=== PATIENT | female | born 1930 | race Caucasian/White ===

== ENCOUNTER 2017-11-17 14:09 | Emergency (ER) | payer MEDICARE ==
[2017-11-17 16:14] LABS: ABS Basophils 0 10^3/ul (0-0.2); ABS Eosinophils 0 10^3/ul (0-0.6); ABS Lymphocytes 0.7 10^3/ul (1.0-4.8); ABS Monocytes 0.6 10^3/ul (0-0.8); ABS Neutrophils 6.7 10^3/ul (1.5-7.7); ABS Nucleated RBC 0 10^3/ul; Eosinophil % 0.4 % (0-6); Hematocrit 28 % (35-47); Hemoglobin 9.3 g/dl (12.0-16.0); Lymphocyte % 8.6 % (25-47); Mean Corpuscular HGB Conc 33 g/dl (31-36); Mean Corpuscular Hemoglobin 31 pg (27-31); Mean Corpuscular Volume 94 fL (80-97); Mean Platelet Volume 8.5 um3 (7.4-10.4); Nucleated Red Blood Cells % 0; Platelet Count 200 10^3/ul (150-450); Red Cell Distribution Width 14 % (10.5-15); White Blood Count 8.1 10^3/ul (3.5-10.8)
--- NOTE | 2017-11-17 16:18 | ED ---
Lower Extremity - HPI Summary HPI Summary: Patient is an 86-year-old female who presents emergency department for a leg pain and swelling. Patient states she was in [place] and fell 2-3 weeks ago. Pt. states she had xrays of hip, femur and knee which were negative according to pt. She then had a venous doppler which was also negative. Pt. just got back to [place] this week and developed increase pain and swelling to right thigh. She denies numbness or tingling in leg. She is on xarelto for afib. She denies fever, chills, CP, SOB. Symptoms are moderate in severity. Is able to ambulate with pain. - History of Current Complaint Chief Complaint: EDExtremityLower Stated Complaint: RT Thigh Pain Time Seen by Provider: 11/17/17 15:17 Hx Obtained From: Patient Pain Intensity: 4 - Allergies/Home Medications Allergies/Adverse Reactions: Allergies Allergy/AdvReac Type Severity Reaction Status Date / Time No Known Allergies Allergy Verified 10/11/13 08:52 PMH/Surg Hx/FS Hx/Imm Hx Previously Healthy: Yes Endocrine/Hematology History: Denies: Hx Diabetes Cardiovascular History: Reports: Hx Pacemaker/ICD, Other Cardiovascular Problems /Disorders - Bradycardia Respiratory History: Denies: Hx Asthma, Hx Chronic Obstructive Pulmonary Disease (COPD) GI History: Reports: Hx Irritable Bowel Musculoskeletal History: Reports: Hx Arthritis, Hx Osteoporosis Sensory History: Reports: Hx Cataracts, Hx Contacts or Glasses, Hx Glaucoma, Hx Hearing Aid, Hx Hearing Problem Opthamlomology History: Reports: Hx Cataracts, Hx Contacts or Glasses, Hx Glaucoma - Cancer History Cancer Type, Location and Year: Colon Cancer in 1979. Skin Melanoma on chest in 2003 Hx Chemotherapy: No Hx Radiation Therapy: No Hx Palliative Cancer Treatment: No - Surgical History Surgery Procedure, Year, and Place: 1979 Colon Cancer surgical resection. 1981 Hysterectomy. March 2011 Pacemaker Hx Anesthesia Reactions: No - Immunization History Immunizations Up to Date: Yes Infectious Disease History: No Infectious Disease History: Denies: Traveled Outside the [place] in Last 30 Days - Social History Occupation: Retired Lives: Alone Alcohol Use: None Substance Use Type: Reports: None Smoking Status (MU): Never Smoked Tobacco Type: Cigarettes Have You Smoked in the Last Year: No Review of Systems Constitutional: Negative Negative: Fever, Chills Cardiovascular: Negative Respiratory: Negative Positive: Other - Pain and swelling to right upper LE Neurological: Negative Negative: Weakness, Paresthesia, Numbness All Other Systems Reviewed And Are Negative: Yes Physical Exam Triage Information Reviewed: Yes Vital Signs On Initial Exam: Initial Vitals Temp Pulse Resp BP Pulse Ox 98.4 F 65 18 139/68 100 11/17/17 14:35 11/17/17 14:35 11/17/17 14:35 11/17/17 14:35 11/17/17 14:35 Vital Signs Reviewed: Yes Appearance: Positive: Well-Appearing - Pt. lying in bed in NAD. Friends present. Skin: Positive: Warm, Dry Head/Face: Positive: Normal Head/Face Inspection Eyes: Positive: Normal Neck: Positive: Supple Musculoskeletal: Positive: Other - Moderate edema noted to the anterior right thigh. No wounds. Compartment is soft. Good palpable pedal pulse. NO distal calf edema or pain. No hip pain. Neurological: Positive: Normal, CN Intact II-III Psychiatric: Positive: Affect/Mood Appropriate Diagnostics - Vital Signs Vital Signs Temp Pulse Resp BP Pulse Ox 11/17/17 14:35 98.4 F 65 18 139/68 100 - Laboratory Lab Results: Lab Results 11/17/17 Range/Units 16:01 WBC 8.1 (3.5-10.8) 10^3/ul RBC 3.00 L (4.00-5.40) 10^6/ul Hgb 9.3 L (12.0-16.0) g/dl Hct 28 L (35-47) % MCV 94 (80-97) fL MCH 31 (27-31) pg MCHC 33 (31-36) g/dl RDW 14 (10.5-15) % Plt Count 200 (150-450) 10^3/ul MPV 8.5 (7.4-10.4) um3 Neut % (Auto) 83.4 H (38-83) % Lymph % (Auto) 8.6 L (25-47) % [place] % (Auto) 7.3 H (0-7) % Eos % (Auto) 0.4 (0-6) % Baso % (Auto) 0.3 (0-2) % Absolute Neuts (auto) 6.7 (1.5-7.7) 10^3/ul Absolute Lymphs (auto) 0.7 L (1.0-4.8) 10^3/ul Absolute Monos (auto) 0.6 (0-0.8) 10^3/ul Absolute Eos (auto) 0 (0-0.6) 10^3/ul Absolute Basos (auto) 0 (0-0.2) 10^3/ul Absolute Nucleated RBC 0 10^3/ul Nucleated RBC % 0 Result Diagrams: 11/17/17 16:01 11/17/17 16:01 Lab Statement: Any lab studies that have been ordered have been reviewed, and results considered in the medical decision making process. Lower Extremity Course/Dx - Course Course Of Treatment: Pt. presenting for evaluation of hematoma after a fall 2-3 weeks ago. Afebrile. Well appearing. There are no signs of compartment syndrome on exam. Pt.'s neighbor is present with her who notes he is a retired physician and used to be patient's family physician. States he is concerned for possible hairline fracture that was not seen on x-ray. Patient examined by Dr. Lowe as well. Will obtain labs and CT scan to r/o occult fx. H and H are 9.[address] scan shows large hematoma without fx, reading per radiology. Results discussed. Advised to continue to ice and elevate. To call PCP tomorrow for a close f. u apt. Will need repeat CBC in 2-3 days. Recommend discussing with PCP the need for possibly considering dc xarelto if needed. To return to ER if symptoms change or worsen. Pt. and friends understand and agree with plan. - Diagnoses Differential Diagnosis/HQI/PQRI: Positive: Contusion, Fracture (Closed), Sprain , Strain Provider Diagnoses: Hematoma Discharge - Sign-Out/Discharge Documenting (check all that apply): Patient Departure - Discharge Plan Condition: Good Disposition: HOME Patient Education Materials: Hematoma (ED) Referrals: Larry Gunter DO [Primary Care Provider] - Additional Instructions: Call your PCP tomorrow for a close follow up appointment Will need a repeat CBC in 2-3 days Ice and elevate leg Return to ER if symptoms change or worsen - Billing Disposition and Condition Condition: GOOD Disposition: Home
[2017-11-17 16:27] LABS: INR 1.98 (0.77-1.02)
[2017-11-17 16:33] LABS: EGFR Non-African American 68.8 (>60)
--- NOTE | 2017-11-17 16:59 | RAD ---
INDICATION: Right thigh injury. COMPARISON: There are no prior studies available for comparison. TECHNIQUE: Contiguous axial sections were obtained of the right thigh. Images were reconstructed in the sagittal and coronal planes. FINDINGS: There is a focal ill-defined area of increased density centered in the quadriceps muscles anterior and lateral to the femur involving at least the rectus femoris, vastus intermedius and lateralis muscles. This measures approximately 15.5 x 6.7 x 8.0 cm. The femur appears intact without evidence for fracture. Incidental note is made of [id number] osteoarthritic change in the hip. IMPRESSION: LARGE AREA OF INCREASED DENSITY CENTERED IN THE ANTERIOR LATERAL QUADRICEPS MUSCLES CONSISTENT WITH A LARGE HEMATOMA. NO FRACTURE IS SEEN.
[2017-11-17 18:18] VITALS: BP 139/70
== END 2017-11-17 17:30 | disposition home or self-care (01) ==
LOC: ED 14:09
DX: S70.11XA Contusion of right thigh, initial encounter (principal); W19.XXXA Unspecified fall, initial encounter; Y93.9 Activity, unspecified; Y92.9 Unspecified place or not applicable; I48.91 Unspecified atrial fibrillation; Z79.01 Long term (current) use of anticoagulants; Z95.810 Presence of automatic (implantable) cardiac defibrillator; Z85.038 Personal history of other malignant neoplasm of large intestine; Z85.820 Personal history of malignant melanoma of skin
CPT/HCPCS: 36415; 80053; 85025; 85610; 99282

== ENCOUNTER 2017-12-27 07:08 | Emergency (ER) | payer MEDICARE, BC ==
--- NOTE | 2017-12-27 07:35 | ED ---
Lower Extremity - HPI Summary HPI Summary: Pt is an 87 y/o female who presents to the ED c/o left hip pain. She states the pain started 3 days ago and has been worsening. Last night at 22:00 the pain became much worse, and she was unable to sleep because of the severity of the pain, which she rates as a 10/10. The pain is the worst posteriorly, but she states the pain moves around and is twingy. Pt has a history of arthritis. She took Tylenol both before bed and at 2:00 this morning, but it did not relieve her symptoms. Pt states she wants a Cortisone shot now. 2 months ago, she fell and injured her right hip and right arm. Pt had a large hematoma on her right hip, and states this is not fully healed. She denies any new recent falls or injuries. Pt is on Xarelto for AFib. She denies any CP, SOB, dizziness , weakness, or numbness. Pt c/o mild headache due to lack of sleep. Home Medications Medication Instructions Recorded Confirmed Type Latanoprost 0.005%* [Xalatan 1 drop BOTH EYES DAILY 12/27/17 12/27/17 History 0.005%*] Metoprolol Tartrate TAB* 50 mg PO DAILY 12/27/17 12/27/17 History [Lopressor TAB*] Multivit-Min/Iron/Folic/Lutein 1 tab PO DAILY 12/27/17 12/27/17 History [Centrum Silver Women Tablet] Rivaroxaban TAB(*) [Xarelto 15 15 mg PO DAILY 12/27/17 12/27/17 History mg(*)] - History of Current Complaint Chief Complaint: EDHipPelvisInjury Stated Complaint: LT HIP PAIN/ARTHYRITIS Hx Obtained From: Patient Onset of Pain: Days - 3 Onset/Duration: Worse Since Severity Currently: Severe Pain Intensity: 10 Pain Scale Used: 0-10 Numeric Timing: Constant Location: Is Discrete @ - Left hip - posterior Character Of Pain: Unable To Describe Associated Signs And Symptoms: Negative: Weakness, Dizziness Aggravating Factor(s): Movement, Other - Touch - Allergies/Home Medications Allergies/Adverse Reactions: Allergies Allergy/AdvReac Type Severity Reaction Status Date / Time No Known Allergies Allergy Verified 10/11/13 08:52 Home Medications: Home Medications Latanoprost 0.005%* [Xalatan 0.005%*] 1 drop BOTH EYES DAILY 12/27/17 [History Confirmed 12/27/17] Metoprolol Tartrate TAB* [Lopressor TAB*] 50 mg PO DAILY 12/27/17 [History Confirmed 12/27/17] Multivit-Min/Iron/Folic/Lutein [Centrum Silver Women Tablet] 1 tab PO DAILY 08/10 [History Confirmed 12/27/17] Rivaroxaban TAB(*) [Xarelto 15 mg(*)] 15 mg PO DAILY 12/27/17 [History Confirmed 12/27/17] PMH/Surg Hx/FS Hx/Imm Hx Endocrine/Hematology History: Denies: Hx Diabetes Cardiovascular History: Reports: Hx Atrial Fibrillation, Hx Pacemaker/ICD, Other Cardiovascular Problems/Disorders - Bradycardia Respiratory History: Denies: Hx Asthma, Hx Chronic Obstructive Pulmonary Disease (COPD) GI History: Reports: Hx Irritable Bowel Musculoskeletal History: Reports: Hx Arthritis, Hx Osteoporosis Sensory History: Reports: Hx Cataracts, Hx Contacts or Glasses, Hx Glaucoma, Hx Hearing Aid, Hx Hearing Problem Opthamlomology History: Reports: Hx Cataracts, Hx Contacts or Glasses, Hx Glaucoma - Cancer History Cancer Type, Location and Year: Colon Cancer in 1979. Skin Melanoma on chest in 2003 Hx Chemotherapy: No Hx Radiation Therapy: No Hx Palliative Cancer Treatment: No - Surgical History Surgery Procedure, Year, and Place: 1979 Colon Cancer surgical resection. 1981 Hysterectomy. March 2011 Pacemaker Hx Anesthesia Reactions: No Infectious Disease History: No Infectious Disease History: Denies: Traveled Outside the [place] in Last 30 Days - Family History Known Family History: Positive: Cardiac Disease - [place], Respiratory Disease - Emphysema, Other - Cancer - father - Social History Alcohol Use: None Hx Substance Use: No Substance Use Type: Reports: None Hx Tobacco Use: No Smoking Status (MU): Never Smoked Tobacco Type: Cigarettes Have You Smoked in the Last Year: No Review of Systems Negative: Chest Pain Negative: Shortness Of Breath Neurological: Other - NEGATIVE: dizziness Positive: Headache. Negative: Weakness, Numbness All Other Systems Reviewed And Are Negative: Yes Physical Exam - Summary Physical Exam Summary: Appearance: Well-appearing, moderate pain distress, well-nourished Skin: Warm, color reflects adequate perfusion, dry Head: Normal Head/Face inspection, atraumatic Eyes: Conjunctiva clear ENT: Normal inspection Neck: Supple, no nodes, no JVD Respiratory: Lungs clear, normal breath sounds, no respiratory distress Cardio: RRR, No murmur, pulses normal, brisk capillary refill Abdomen: Soft, nontender Bowel sounds: Present Musculoskeletal: Strength Intact/ROM intact, no calf tenderness, no edema. Psychological: Normal Neuro: Alert, muscle tone normal, no focal deficit Triage Information Reviewed: Yes Vital Signs On Initial Exam: Initial Vitals Temp Pulse Resp BP Pulse Ox 97.5 F 69 18 185/85 99 12/27/17 07:10 12/27/17 07:10 12/27/17 07:10 12/27/17 07:10 12/27/17 07:10 Vital Signs Reviewed: Yes Diagnostics - Vital Signs Vital Signs Temp Pulse Resp BP Pulse Ox 12/27/17 07:10 97.5 F 69 18 185/85 99 - Laboratory Lab Statement: Any lab studies that have been ordered have been reviewed, and results considered in the medical decision making process. - Radiology Hip/Pelvis XR Radiology Interpretation Completed By: Radiologist - 1. OSTEOPENIA. 2. OSTEOARTHRITIS. 3. NO ACUTE OSSEOUS INJURY. IF SYMPTOMS PERSIST, RECOMMEND REPEAT IMAGING. ED physician reviewed radiology report. Lumbar Spine XR Xray Interpretation: Positive (See Comments) - OSTEOPENIA. DEGENERATIVE DISC DISEASE AND OSTEOARTHRITIS. Radiology Interpretation Completed By: Radiologist Re-Evaluation - Re-Evaluation First Eval Re-Evaluation Time: 09:05 Change: Improved Comment: Informed pt of XR results. Pt feels better after Lidocaine and Acetaminophen. Lower Extremity Course/Dx - Course Course Of Treatment: Pt reports to the ED c/o worsening left hip pain for 3 days. PMHx arthritis. A hip/pelvis and lumbar spine XR revealed OSTEOPENIA, OSTEOARTHRITIS, NO ACUTE OSSEOUS INJURY. IF SYMPTOMS PERSIST, RECOMMEND REPEAT IMAGING. Final dx is hip pain. - Diagnoses Provider Diagnoses: Hip pain Discharge - Sign-Out/Discharge Documenting (check all that apply): Patient Departure - Discharge - Discharge Plan Condition: Stable Disposition: HOME Prescriptions: Cyclobenzaprine TAB* [Flexeril 10 MG TAB*] 10 mg PO BEDTIME PRN #10 tab PRN Reason: Pain Lidocaine PATCH 5%* [Lidoderm 5% Patch*] 1 patch TRANSDERM DAILY #10 patch Patient Education Materials: Sciatica (ED), Hip Pain (ED), Arthritis (ED) Referrals: Larry Gunter, [Primary Care Provider] - 2 Days Buddy Frausto MD [Medical Doctor] - As Soon As Possible Additional Instructions: [facility] sees patients at [facility]. When you call the number to make an appointment with Dr. Frausto or the first orthopedist available, ask to be seen in the [facility] office. You may take acetaminophen (Tylenol) 1000mg ( 2 of the 500mg tabs) four times a day safely for pain. Your last dose was at 0800am today. You may also try cyclobenzaprine 10mg at bedtime as a muscle relaxant for pain. You may try ice or heat to the area. Dr. Garza prescribed lidocaine patches and you may use those if you feel they help. RETURN TO THE EMERGENCY DEPARTMENT FOR NEW OR WORSENING SYMPTOMS - Attestation Statements Document Initiated by Scribe: Yes Documenting Scribe: Terese Leigh Provider For Whom Scribe is Documenting (Include Credential): Ivania Garza MD Scribe Attestation: Terese Lakhani, scribed for Ivania Garza MD on 12/27/17 at 1903.
[2017-12-27] MEDS ORDERED: Acetaminophen TAB* 325 MG PO ONE (07:50)
[2017-12-27] MEDS ORDERED: Lidocaine PATCH 5%* 1 PATCH TRANSDERM ONE (07:51)
--- NOTE | 2017-12-27 08:48 | RAD ---
HISTORY: left hip, sciatic notch pain, hx arthritis COMPARISONS: None VIEWS: 3 , Frontal view of the pelvis with frontal and frog-leg views of the left hip FINDINGS: BONE DENSITY: There is diffuse osteopenia. BONES: There is no displaced fracture. JOINTS: There is mild osteoarthritis of the hips and SI joints. ALIGNMENT: There is no dislocation. SOFT TISSUES: Unremarkable. OTHER FINDINGS: There is post surgical change to the rectum. Surgical clips are noted in the pelvis. Degenerative changes are noted of the spine. IMPRESSION: 1. OSTEOPENIA. 2. OSTEOARTHRITIS. 3. NO ACUTE OSSEOUS INJURY. IF SYMPTOMS PERSIST, RECOMMEND REPEAT IMAGING.
--- NOTE | 2017-12-27 09:16 | RAD ---
HISTORY: pain sciatic notch, hx arthritis COMPARISONS: None VIEWS: 5 , Frontal, lateral, coned-down lateral sacral, and bilateral oblique views of the lumbar spine. FINDINGS: ALIGNMENT: The alignment is normal. VERTEBRAL BODIES: There is diffuse osteopenia. Is multilevel anterolateral marginal osteophyte formation. The vertebral bodies are preserved in height. JOINTS: There is facet osteoarthritis most pronounced at L4-L5 and L5-S1. INTERVERTEBRAL DISCS: There is diffuse loss of intervertebral disc height. SOFT TISSUE: Unremarkable. OTHER: There is postsurgical change to the rectum. There is mild osteoporosis of the hips and SI joints. IMPRESSION: OSTEOPENIA. DEGENERATIVE DISC DISEASE AND OSTEOARTHRITIS.
[2017-12-27 09:22] LABS: Urine Appearance Clear; Urine Blood Negative (Negative); Urine Color Yellow; Urine Ketones Negative (Negative); Urine Protein Negative (Negative); Urine Red Blood Cell 1+(3-5/hpf) (Absent); Urine Specific Gravity 1.005 (1.010-1.030); Urine Urobilinogen Negative (Negative); Urine White Blood Cell Trace(0-5/hpf) (Absent)
[2017-12-27 10:02] VITALS: BP 163/83
[2017-12-27] MEDS ORDERED: Lidocaine Patch REMOVE* 1 NOTE MISC SCH (21:00)
== END 2017-12-27 10:01 | disposition home or self-care (01) ==
LOC: ED 07:08
DX: M25.552 Pain in left hip (principal); M16.0 Bilateral primary osteoarthritis of hip; M47.898 Other spondylosis, sacral and sacrococcygeal region; M51.37 Other intervertebral disc degeneration, lumbosacral region; M85.88 Other specified disorders of bone density and structure, other site; R51 Headache; I48.91 Unspecified atrial fibrillation; Z79.01 Long term (current) use of anticoagulants; Z95.0 Presence of cardiac pacemaker; Z91.81 History of falling
CPT/HCPCS: 72110; 81003; 81015; 87086; 99282; A9270-GY